=== PATIENT | female | born 1985 | race Caucasian/White ===

== ENCOUNTER 2018-07-07 14:44 | Emergency (ER) | payer BC, OTHER ==
[~2018-07-07] VITALS: Ht 167.6 cm; Wt 54.3 kg
[2018-07-07] MEDS ORDERED: XANAX 0.5 MG0.5 MG PO (15:08)
[2018-07-07 15:11] LABS: URINE BILIRUBIN NEGATIVE (Negative); URINE BLOOD NEGATIVE (Negative); URINE CLARITY CLEAR; URINE COLOR YELLOW; URINE GLUCOSE-RANDOM* NEGATIVE (Negative); URINE KETONES NEGATIVE (Negative); URINE NITRITE NEGATIVE (Negative); URINE PROTEIN (DIPSTICK) NEGATIVE (Negative); URINE SPECIFIC GRAVITY < 1.005 (1.005-1.035); URINE UROBILINOGEN 0.2 E.U./dl (0.2-1.0)
[2018-07-07 15:12] LABS: URINE LEUKOCYTES NEGATIVE (Negative)
[2018-07-07 15:33] LABS: CALCIUM 9.2 mg/dL (8.5-10.1); CREATININE 0.7 mg/dL (0.6-1.0); POTASSIUM 4.7 mmol/L (3.5-5.1)
[2018-07-07 15:33] LABS: HEMATOCRIT 40.4 % (37.0-47.0); MCHC 34.7 g/dL (28.0-37.0); MCV 86.3 fL (80.0-100.0); PLATELET COUNT 207 thou/uL (150-400); RBC 4.68 mil/uL (4.20-5.00); RDW 12.5 % (10.5-14.5)
[2018-07-07 16:06] LABS: ABSOLUTE NEUTROPHILS 2.9 thou/uL (1.4-8.2); PLATELET ESTIMATE NORMAL
[2018-07-07 17:37] VITALS: BP 93/50
== END 2018-07-07 17:37 | disposition home or self-care (01) ==
LOC: ER 14:44
PROVIDERS: Emergency Medicine
DX: R10.9 Unspecified abdominal pain (principal)